=== PATIENT | female | born 1935 | race Caucasian/White ===

== ENCOUNTER 2018-06-10 16:44 | Inpatient (IN) ==
[2018-06-10] MEDS ORDERED: Aspirin 81 MG TAB.CHEW PO ONE (17:21)
[2018-06-10 18:03] LABS: Basophils % 0.1 %; Hematocrit 42.8 % (35.3-44.9); Hemoglobin 14.5 g/dL (11.5-15.4); Immature Granulocytes % 0.6 % (0-4); Lymphocytes # 11.7 K/mcL (0.6-4.6); Lymphocytes % 50.1 %; Mean Corpuscular HGB Conc 33.9 g/dL (31.6-35.5); Mean Corpuscular Volume 88.4 fL (83.0-100.0); Mean Platelet Volume 10.3 fL (9.4-12.4); Monocytes # 0.7 K/mcL (0.0-1.3); Monocytes % 2.9 %; Platelet Count 278 K/mcL (140-400); Red Blood Count 4.84 M/mcL (3.82-4.97); Red Cell Distribution Width 13.1 % (11.5-14.5); Segmented Neutrophils % 46.3 %
[2018-06-10 18:07] LABS: Neutrophils # 10.8 K/mcL (1.6-8.9)
[2018-06-10 18:09] LABS: INR 0.9
--- NOTE | 2018-06-10 18:12 | Emergency Department Note ---
Addendum entered and electronically signed by Ramírez Lewis 06/10/18 21:29: CTA of the chest revealed no evidence of pulmonary embolism. Original Note: Disposition Clinical Impression: Elevated troponin, Elevated brain natriuretic peptide (BNP) level Chest pain Qualifiers: Chest pain type: unspecified Qualified Code(s): R07.9 - Chest pain, unspecified Elevated WBC count Qualifiers: Leukocytosis type: other Qualified Code(s): D72.828 - Other elevated white blood cell count Disposition: Admitted As Inpatient Condition: Fair Time of Disposition: 21:10 General Adult HPI - General Chief complaint: ED Arrhythmia/Palpitations Stated complaint: High HR Time Seen by Provider: 06/10/18 17:03 Source: patient, family Mode of arrival: ambulatory Limitations: no limitations Nursing Notes Reviewed: Yes Vital Signs Reviewed: Yes - History of Present Illness HPI Narrative: Patient is an 82-year-old female presenting with elevated heart rate and chest pain. Patient has past medical history significant for hypertension, breast cancer, CLL, HLD. Patient states prior to arrival she was in her oncologists office and was found to have elevated heart rate in the 130s. Patient states she does not have history of elevated heart rate. She also states that last night she had an episode of chest pressure located just under the right breast which she describes to be a dull ache and pressure sensation lasting for a few seconds. She was nonexertional and the pain resolved on its own. Denies shortness of breath or diaphoresis. She denies any recent fever or chills. She states that she does have slight cough that has been ongoing for the past few weeks, denies any sputum production. Patient denies history of myocardial infarction in the past, she denies cardiac history. She denies history of DVT or PE. She denies calf tenderness or calf swelling. She does take her medications at home as requested. She does state that she has been under increased stress given her calcium was elevated at 13 and she was stated that she needed to come in for further evaluation. She currently denies chest pain or discomfort. Patient has recently not been moving around as much, she does have a boot to her left ankle, states that she has not been walking around quite as much and has been sitting in bed more often. Pain Scale: 0 - Related Data Home Medications Medication Instructions Recorded Confirmed LORazepam [Ativan] 0.5 mg PO QAM 10/17/15 06/10/18 Lisinopril [Zestril] 40 mg PO DAILY 10/17/15 06/10/18 Torsemide 5 mg PO DAILY 09/03/17 06/10/18 Cholecalciferol (D-3) [Vitamin D] 1,000 unit PO DAILY 12/03/17 06/10/18 predniSONE [PredniSONE] 10 mg PO TAPER PRN 06/10/18 06/10/18 Previous Rx's Medication Instructions Recorded Aspirin 81 mg PO DAILY 30 Days #30 tab.chew 06/12/18 Atorvastatin [Lipitor] 10 mg PO HS 30 Days #30 tablet 06/12/18 predniSONE [PredniSONE] 10 mg PO DAILY tablet 06/12/18 predniSONE [PredniSONE] 20 mg PO DAILY tablet 06/12/18 predniSONE [PredniSONE] 30 mg PO DAILY tablet 06/12/18 Allergies Allergy/AdvReac Type Severity Reaction Status Date / Time No Known Allergies Allergy Verified 06/10/18 20:42 All systems ED: reviewed and negative except as stated. Review of Systems: As Per HPI Constitutional: Denies: fever, chills ENT ED: Denies: congestion Cardiovascular: Reports: chest pain, palpitations. Denies: dyspnea on exertion , orthopnea, syncope, paroxysmal nocturnal dyspnea Respiratory: Reports: cough. Denies: dyspnea, wheezes, hemoptysis, sputum production Gastrointestinal: Denies: abdominal pain, nausea, vomiting Genitourinary: Denies: urgency, dysuria Musculoskeletal: Denies: back pain Integumentary: Denies: rash Neurological: Denies: headache Endocrine: Denies: fatigue Past Medical History - Past Medical History Medical history: Reports: cancer, hypertension Psychiatric history: Reports: anxiety - Social History Smoking Status: Never smoker Smokeless Tobacco Status: No Alcohol use: Reports: none Drug use: Reports: none Physical Exam - General Limitations: no limitations General appearance: alert, in no apparent distress - Head Head exam: atraumatic, normocephalic - Eye Eye exam: Present: normal appearance - ENT ENT exam: normal exam, mucous membranes moist - Neck Neck exam: Present: normal inspection - Chest Chest inspection: Present: normal inspection, symmetric chest wall rise. Absent : tenderness - Respiratory Respiratory exam: Present: normal lung sounds bilaterally, other (crackles to the right base). Absent: respiratory distress, wheezes - Cardiovascular Cardiovascular exam: Present: normal rhythm, tachycardia (rate of 101 in the room) - Abdominal Exam Abdominal exam: Present: soft, Non-Tender. Absent: distention, guarding, rebound - Extremities Exam Extremities exam: Present: normal inspection, normal capillary refill. Absent: tenderness, pedal edema, joint swelling, calf tenderness - Expanded Lower Extremity Exam Neurovascular/Tendon exam: Present: normal capillary refill. Absent: pulse deficit, motor deficit, sensory deficit - Neurological Exam Neurological exam: Present: alert, oriented X3 - Psychiatric Psychiatric exam: Present: normal affect, normal mood - Skin Skin exam: Present: warm, dry, intact Course Course Narrative: Will workup patient for ACS rule out, also concern for DVT/PE given remote history of immobilization, history of cancer and tachycardia. Vital Signs Temperature 97.9 F 06/10/18 17:02 Pulse Rate 115 06/10/18 17:02 Respiratory Rate 16 06/10/18 17:02 Blood Pressure 160/84 06/10/18 17:02 O2 Sat by Pulse Oximetry 95 06/10/18 17:02 Temperature 97.8 F 06/12/18 11:40 Pulse Rate 51 06/12/18 11:40 Respiratory Rate 19 06/12/18 11:40 Blood Pressure 138/79 06/12/18 11:40 O2 Sat by Pulse Oximetry 95 06/12/18 11:40 Oxygen Delivery Oxygen Delivery Room Air Medical Decision Making - [facility] Narrative Medical decision making narrative: Patient is an 82-year-old female presenting with palpitations and chest pain. Patient has past medical history significant for breast cancer, CLL, hypertension. Patient was seen and evaluated by her oncologist, who stated that she was tachycardic in the 130s. While scale score puts patient at high risk significant for immobilization as she is currently wearing a boot to the left leg, heart rate is greater than 100, Wells criteria places patient at moderate risk, diagnosis included most times and symptoms without evidence of DVT. The patient was examined initially on presentation, heart rate in the 1 teens, lot bedside heart rate is 102, pulse ox while on 2 L nasal cannula is at 96%. Patient does not usually wear oxygen at home. No history of prior DVT or PE, patient does not take aspirin or any anticoagulation at home. Immediate concern for ACS or PE. Laboratory evaluation revealed chronicleukocytosis at 23.2. BNP is elevated at 313, troponin was elevated at 0.11, chest x-ray showed opacification in the right lower lobe. Patient declines any fever, chills, has had slight cough recently. With concern for PE, CTA of the chest was ordered. At this point in time, we will call hospitalist with concern for ACS rule out, CTA currently pending. Spoke with hospitalist, patient symptoms and presentation agrees to accept the patient at this point in time, 2100. Does recommend going had an starting low-dose ACS heparin. He states that he will titrate this dose if needed. - Medical Records Medical records reviewed: Yes I reviewed the patient's medical records. - Lab Data Lab results reviewed: Yes I reviewed the patient's lab results. Result diagrams: 06/12/18 03:32 06/12/18 03:32 Lab Results 06/10/18 06/10/18 06/10/18 Range/Units 17:44 17:44 17:44 WBC (4.3-11.1) K/mcL RBC (3.82-4.97) M/mcL Hgb (11.5-15.4) g/dL Hct (35.3-44.9) % MCV (83.0-100.0) fL MCH (28.0-33.3) pg MCHC (31.6-35.5) g/dL RDW (11.5-14.5) % Plt Count (140-400) K/mcL MPV (9.4-12.4) fL Immature Gran % (0-4) % Seg Neutrophils % % Lymphocytes % % Monocytes % % Eosinophils % % Basophils % % Neutrophils # (1.6-8.9) K/mcL Lymphocytes # (0.6-4.6) K/mcL Monocytes # (0.0-1.3) K/mcL Eosinophils # (0.0-0.6) K/mcL Basophils # (0.0-0.2) K/mcL Nucleated RBCs/100 WBC (0) /100 WBC Smudge Cells (Not Present) Platelet Estimate (Normal) PT 10.0 (9.4-12.1) Seconds INR 0.9 APTT 26.0 (26.0-36.0) Seconds Heparin Anti-Xa, Unfract (0.30-0.70) IU/mL Sodium (136-145) mEq/L Potassium (3.5-5.1) mEq/L Chloride (98-107) mEq/L Carbon Dioxide (23-29) mEq/L BUN (8-23) mg/dL Creatinine (0.60-1.20) mg/dL Est GFR ( Amer) (> 60) Est GFR (Non-Af Amer) (> 60) BUN/Creatinine Ratio (6-26) Glucose (70-105) mg/dL Calculated Osmolality (280-300) Calcium (8.6-10.3) mg/dL Troponin I (< 0.04) ng/mL B-Natriuretic Peptide 313 H (Less than 100) pg/mL Lipase 4 L (11-82) Units/L Urine Color (Yellow) Urine Clarity (Clear) Urine pH (5.0-8.0) pH Units Ur Specific [place] (1.010-1.025) Urine Protein (Neg-Trace) mg/dL Urine Glucose (UA) (Normal) mg/dL Urine Ketones (Negative) mg/dL Urine Blood (Negative) Urine Nitrite (Negative) Urine Bilirubin (Negative) Urine Urobilinogen (Normal) mg/dL Ur Leukocyte Esterase (Negative) Urine Microscopic RBC (0-3) per hpf Urine Microscopic WBC (0-3) per hpf Ur Squamous Epith Cells (None-Few) per lpf Urine Bacteria (None-Few) per hpf Hyaline Casts (None-Few) per lpf Ur Culture Indicated? (NO) 06/10/18 06/10/18 06/10/18 Range/Units 17:44 17:44 18:14 WBC 23.4 H (4.3-11.1) K/mcL RBC 4.84 (3.82-4.97) M/mcL Hgb 14.5 (11.5-15.4) g/dL Hct 42.8 (35.3-44.9) % MCV 88.4 (83.0-100.0) fL MCH 30.0 (28.0-33.3) pg MCHC 33.9 (31.6-35.5) g/dL RDW 13.1 (11.5-14.5) % Plt Count 278 (140-400) K/mcL MPV 10.3 (9.4-12.4) fL Immature Gran % 0.6 (0-4) % Seg Neutrophils % 46.3 % Lymphocytes % 50.1 % Monocytes % 2.9 % Eosinophils % 0.0 % Basophils % 0.1 % Neutrophils # 10.8 H (1.6-8.9) K/mcL Lymphocytes # 11.7 H (0.6-4.6) K/mcL Monocytes # 0.7 (0.0-1.3) K/mcL Eosinophils # 0.0 (0.0-0.6) K/mcL Basophils # 0.0 (0.0-0.2) K/mcL Nucleated RBCs/100 WBC (0) /100 WBC Smudge Cells (Not Present) Platelet Estimate Normal (Normal) PT (9.4-12.1) Seconds INR APTT (26.0-36.0) Seconds Heparin Anti-Xa, Unfract (0.30-0.70) IU/mL Sodium 138 (136-145) mEq/L Potassium 3.6 (3.5-5.1) mEq/L Chloride 99 (98-107) mEq/L Carbon Dioxide 30 H (23-29) mEq/L BUN 18 (8-23) mg/dL Creatinine 0.88 (0.60-1.20) mg/dL Est GFR ( Amer) > 60 (> 60) Est GFR (Non-Af Amer) > 60 (> 60) BUN/Creatinine Ratio 20 (6-26) Glucose 186 H (70-105) mg/dL Calculated Osmolality 293 (280-300) Calcium 12.3 H (8.6-10.3) mg/dL Troponin I 0.11 H* (< 0.04) ng/mL B-Natriuretic Peptide (Less than 100) pg/mL Lipase (11-82) Units/L Urine Color Yellow (Yellow) Urine Clarity Clear (Clear) Urine pH 7.0 (5.0-8.0) pH Units Ur Specific [place] 1.010 (1.010-1.025) Urine Protein Negative (Neg-Trace) mg/dL Urine Glucose (UA) Normal (Normal) mg/dL Urine Ketones Negative (Negative) mg/dL Urine Blood Negative (Negative) Urine Nitrite Negative (Negative) Urine Bilirubin Negative (Negative) Urine Urobilinogen Normal (Normal) mg/dL Ur Leukocyte Esterase Trace H (Negative) Urine Microscopic RBC 0-3 (0-3) per hpf Urine Microscopic WBC 3-5 H (0-3) per hpf Ur Squamous Epith Cells Many H (None-Few) per lpf Urine Bacteria None Seen (None-Few) per hpf Hyaline Casts None Seen (None-Few) per lpf Ur Culture Indicated? NO. A (NO) 06/10/18 06/10/18 06/11/18 Range/Units 21:36 21:36 00:21 WBC 23.8 H (4.3-11.1) K/mcL RBC 4.59 (3.82-4.97) M/mcL Hgb 13.5 (11.5-15.4) g/dL Hct 39.9 (35.3-44.9) % MCV 86.9 (83.0-100.0) fL MCH 29.4 (28.0-33.3) pg MCHC 33.8 (31.6-35.5) g/dL RDW 13.2 (11.5-14.5) % Plt Count 273 (140-400) K/mcL MPV 10.3 (9.4-12.4) fL Immature Gran % (0-4) % Seg Neutrophils % % Lymphocytes % % Monocytes % % Eosinophils % % Basophils % % Neutrophils # (1.6-8.9) K/mcL Lymphocytes # (0.6-4.6) K/mcL Monocytes # (0.0-1.3) K/mcL Eosinophils # (0.0-0.6) K/mcL Basophils # (0.0-0.2) K/mcL Nucleated RBCs/100 WBC (0) /100 WBC Smudge Cells (Not Present) Platelet Estimate (Normal) PT 10.5 (9.4-12.1) Seconds INR 0.9 APTT (26.0-36.0) Seconds Heparin Anti-Xa, Unfract 0.06 L (0.30-0.70) IU/mL Sodium (136-145) mEq/L Potassium (3.5-5.1) mEq/L Chloride (98-107) mEq/L Carbon Dioxide (23-29) mEq/L BUN (8-23) mg/dL Creatinine (0.60-1.20) mg/dL Est GFR ( Amer) (> 60) Est GFR (Non-Af Amer) (> 60) BUN/Creatinine Ratio (6-26) Glucose (70-105) mg/dL Calculated Osmolality (280-300) Calcium (8.6-10.3) mg/dL Troponin I 0.23 H* (< 0.04) ng/mL B-Natriuretic Peptide (Less than 100) pg/mL Lipase (11-82) Units/L Urine Color (Yellow) Urine Clarity (Clear) Urine pH (5.0-8.0) pH Units Ur Specific [place] (1.010-1.025) Urine Protein (Neg-Trace) mg/dL Urine Glucose (UA) (Normal) mg/dL Urine Ketones (Negative) mg/dL Urine Blood (Negative) Urine Nitrite (Negative) Urine Bilirubin (Negative) Urine Urobilinogen (Normal) mg/dL Ur Leukocyte Esterase (Negative) Urine Microscopic RBC (0-3) per hpf Urine Microscopic WBC (0-3) per hpf Ur Squamous Epith Cells (None-Few) per lpf Urine Bacteria (None-Few) per hpf Hyaline Casts (None-Few) per lpf Ur Culture Indicated? (NO) 06/11/18 06/11/18 06/11/18 Range/Units 00:21 00:21 05:36 WBC 27.3 H (4.3-11.1) K/mcL RBC 4.57 (3.82-4.97) M/mcL Hgb 13.4 (11.5-15.4) g/dL Hct 39.9 (35.3-44.9) % MCV 87.3 (83.0-100.0) fL MCH 29.3 (28.0-33.3) pg MCHC 33.6 (31.6-35.5) g/dL RDW 13.2 (11.5-14.5) % Plt Count 276 (140-400) K/mcL MPV 10.4 (9.4-12.4) fL Immature Gran % (0-4) % Seg Neutrophils % 58.0 % Lymphocytes % 36.0 % Monocytes % 6.0 % Eosinophils % % Basophils % % Neutrophils # 15.8 H (1.6-8.9) K/mcL Lymphocytes # 9.8 H (0.6-4.6) K/mcL Monocytes # 1.6 H (0.0-1.3) K/mcL Eosinophils # (0.0-0.6) K/mcL Basophils # (0.0-0.2) K/mcL Nucleated RBCs/100 WBC 0.1 H (0) /100 WBC Smudge Cells Present A (Not Present) Platelet Estimate Normal (Normal) PT (9.4-12.1) Seconds INR APTT (26.0-36.0) Seconds Heparin Anti-Xa, Unfract (0.30-0.70) IU/mL Sodium 137 (136-145) mEq/L Potassium 3.2 L (3.5-5.1) mEq/L Chloride 99 (98-107) mEq/L Carbon Dioxide 30 H (23-29) mEq/L BUN 17 (8-23) mg/dL Creatinine 0.80 (0.60-1.20) mg/dL Est GFR ( Amer) > 60 (> 60) Est GFR (Non-Af Amer) > 60 (> 60) BUN/Creatinine Ratio 21 (6-26) Glucose 192 H (70-105) mg/dL Calculated Osmolality 291 (280-300) Calcium 11.8 H (8.6-10.3) mg/dL Troponin I 0.24 H* (< 0.04) ng/mL B-Natriuretic Peptide (Less than 100) pg/mL Lipase (11-82) Units/L Urine Color (Yellow) Urine Clarity (Clear) Urine pH (5.0-8.0) pH Units Ur Specific [place] (1.010-1.025) Urine Protein (Neg-Trace) mg/dL Urine Glucose (UA) (Normal) mg/dL Urine Ketones (Negative) mg/dL Urine Blood (Negative) Urine Nitrite (Negative) Urine Bilirubin (Negative) Urine Urobilinogen (Normal) mg/dL Ur Leukocyte Esterase (Negative) Urine Microscopic RBC (0-3) per hpf Urine Microscopic WBC (0-3) per hpf Ur Squamous Epith Cells (None-Few) per lpf Urine Bacteria (None-Few) per hpf Hyaline Casts (None-Few) per lpf Ur Culture Indicated? (NO) 06/11/18 06/11/18 Range/Units 05:36 12:04 WBC (4.3-11.1) K/mcL RBC (3.82-4.97) M/mcL Hgb (11.5-15.4) g/dL Hct (35.3-44.9) % MCV (83.0-100.0) fL MCH (28.0-33.3) pg MCHC (31.6-35.5) g/dL RDW (11.5-14.5) % Plt Count (140-400) K/mcL MPV (9.4-12.4) fL Immature Gran % (0-4) % Seg Neutrophils % % Lymphocytes % % Monocytes % % Eosinophils % % Basophils % % Neutrophils # (1.6-8.9) K/mcL Lymphocytes # (0.6-4.6) K/mcL Monocytes # (0.0-1.3) K/mcL Eosinophils # (0.0-0.6) K/mcL Basophils # (0.0-0.2) K/mcL Nucleated RBCs/100 WBC (0) /100 WBC Smudge Cells (Not Present) Platelet Estimate (Normal) PT (9.4-12.1) Seconds INR APTT (26.0-36.0) Seconds Heparin Anti-Xa, Unfract 0.67 0.52 (0.30-0.70) IU/mL Sodium (136-145) mEq/L Potassium (3.5-5.1) mEq/L Chloride (98-107) mEq/L Carbon Dioxide (23-29) mEq/L BUN (8-23) mg/dL Creatinine (0.60-1.20) mg/dL Est GFR ( Amer) (> 60) Est GFR (Non-Af Amer) (> 60) BUN/Creatinine Ratio (6-26) Glucose (70-105) mg/dL Calculated Osmolality (280-300) Calcium (8.6-10.3) mg/dL Troponin I (< 0.04) ng/mL B-Natriuretic Peptide (Less than 100) pg/mL Lipase (11-82) Units/L Urine Color (Yellow) Urine Clarity (Clear) Urine pH (5.0-8.0) pH Units Ur Specific [place] (1.010-1.025) Urine Protein (Neg-Trace) mg/dL Urine Glucose (UA) (Normal) mg/dL Urine Ketones (Negative) mg/dL Urine Blood (Negative) Urine Nitrite (Negative) Urine Bilirubin (Negative) Urine Urobilinogen (Normal) mg/dL Ur Leukocyte Esterase (Negative) Urine Microscopic RBC (0-3) per hpf Urine Microscopic WBC (0-3) per hpf Ur Squamous Epith Cells (None-Few) per lpf Urine Bacteria (None-Few) per hpf Hyaline Casts (None-Few) per lpf Ur Culture Indicated? (NO) - Radiology Data Radiology results reviewed: Yes I reviewed the patient's radiology results. Chest X-Ray 06/10/18 17:21 IMPRESSION: Possible right lower lobe pneumonia D/ / Robbie Fish MD / Robbie Fish MD Interpreting Provider: Robbie Fish MD - EKG Data EKG #1 EKG attestation: Yes I reviewed and interpreted this EKG. EKG results narrative: EKG performed at 1719, with ventricular rate of 102, regular rhythm, normal axis , left bundle branch block with QRS of 154, QT 383, QTC of 499, no elevation or depression in the ST segments, no change in the T-wave. LVH noted. In review of old EKG on appears unchanged. S.B.A.R. - S.B.A.R. Situation: Demographics, MOA Background: Presenting Complaint, Relevant PMH, Meds, & Allergies Assessment: Vital Signs, Course and respsone to treatment, Exam Concerns, Patient/Family Expectation, Pertinant Lab Results, Outstanding Labs Recommendation: Barrier(s) to disposition, Recommendation based on pending studies, treatments, or consults S.B.A.R. Report Given to: Hospitalist, Dr. Mederos S.B.A.RRuben Repor Time: 21:09 (accepted) Attestation Statement - Attestation Attestation: I examined this patient and my medical decision-making was reviewed with the Resident Physician, Dr. Lewis. I agree with the documented findings, disposition and treatment plan as described except to the extent set forth below. Pt is an 82 yo wf sent from Oncologist's office for tachycardia. Pt c/o R sided chest pressure since last night, without exertion, none currently. Pt with hx CLL, and dec activity with LE immobilized. I agree with pt's PE findings as documented. tachycardic, normal BP. EKG shows sinus tach, LVH, LBBB; no change from prior EKG CXR with atelectasis vs RLL infiltrate. No clinical signs of pulm infection. Concern for ACS vs PE. Obtained CTA chest, which is wnl. Will admit for CP.
[2018-06-10 18:24] LABS: Bilirubin,Urine Negative (Negative); Blood,Urine Negative (Negative); Clarity,Urine Clear (Clear); Color,Urine Yellow (Yellow); Glucose,Urine (UA) Normal (Normal); Ketones,Urine Negative (Negative); Leukocyte Esterase,Urine Trace (Negative); Nitrite,Urine Negative (Negative); Protein,Urine Negative (Neg-Trace); Urobilinogen,Urine Normal (Normal)
[2018-06-10 18:25] LABS: Bacteria,Urine None Seen per hpf (None-Few); Hyaline Casts,Urine None Seen per lpf (None-Few); RBC,Urine 0-3 per hpf (0-3); Squamous Epithelial Cell,Urine Many per lpf (None-Few)
[2018-06-10 18:26] LABS: Troponin I 0.11 ng/mL (< 0.04)
[2018-06-10 18:28] LABS: BUN/Creatinine Ratio 20 (6-26); Blood Urea Nitrogen 18 mg/dL (8-23); Calcium 12.3 mg/dL (8.6-10.3); Carbon Dioxide 30 mEq/L (23-29); Chloride 99 mEq/L (98-107); Glucose 186 mg/dL (70-105); Osmolality,Calculated 293 (280-300); Potassium 3.6 mEq/L (3.5-5.1); Sodium 138 mEq/L (136-145); eGFR For Non-African Americans > 60 (> 60)
[2018-06-10] MEDS ORDERED: Isovue-370 500 ML INFUS..BTL IV ONE (18:29)
[2018-06-10 18:38] LABS: Platelet Estimate Normal (Normal)
[2018-06-10] MEDS ORDERED: *HR* Heparin 5,000 UNIT/ML VIAL IVP ONE (21:13)
[2018-06-10] MEDS ORDERED: *HR* Heparin 5,000 UNIT/ML VIAL IVP PRN ×2 (21:13)
[2018-06-10 22:03] LABS: Hematocrit 39.9 % (35.3-44.9); Hemoglobin 13.5 g/dL (11.5-15.4); Mean Corpuscular HGB Conc 33.8 g/dL (31.6-35.5); Mean Corpuscular Hemoglobin 29.4 pg (28.0-33.3); Mean Corpuscular Volume 86.9 fL (83.0-100.0); Mean Platelet Volume 10.3 fL (9.4-12.4); Platelet Count 273 K/mcL (140-400); Red Blood Count 4.59 M/mcL (3.82-4.97); Red Cell Distribution Width 13.2 % (11.5-14.5)
[2018-06-10 22:09] LABS: Heparin anti-factor XA UFH 0.06 IU/mL (0.30-0.70); INR 0.9; Prothrombin Time 10.5 Seconds (9.4-12.1)
[2018-06-10] MEDS ORDERED: Naloxone 0.4 MG/ML INJ IVP PRN (22:41)
--- NOTE | 2018-06-10 22:52 | Internal Med History&Physical ---
<Román Miller - Last Filed: 06/11/18 00:08> Date of Encounter: 06/11/18 Time of Encounter: 23:06 Internal Medicine - H&P: HPI Chief complaint: tacycardia Admitted From: Home Plans for Post Hospital Care: Home History of present illness: Ms. Arana is a 82 year old female hx of CLL presented with chief complaint of tachycardia. Patient was at the oncologists office and was found to have a heart rate in the 120s to 130s. She also had episode of chest pain after eating pizza in the morning. Her pain was located in the right breast without any radiation described as a dull ache lasted only a few seconds. She denied the pain becoming worse with exertion, inspiration or improved with rest. She denied shortness of breath, diaphoresis, palpitations, nausea, vomiting, syncope , lightheadedness. She denies fevers, chills, sick contacts. She reports having pain in her left lower extremity, which is in a cast secondary to acute traumatic lateral malleolus fracture and developing gout which she on prednisone. Patient was sent to [facility] emergency room for further evaluation. Patient receives Zometa at the cancer center for hypercalcemia secondary to CLL. She had an infusion before coming to the hospital. Past Med Surg Social Fam HX - Past Medical History Medical history: cancer, hypertension Additional medical history: skin cancer. breast cancer. CLL Psychiatric history: anxiety - Past Surgical History Additional surgical history: skin cancer removal from nose. left breast lumpectomy - Social History Smoking Status: Never smoker Smokeless Tobacco Status: No Alcohol use: none Drug use: none Internal Medicine - H&P: Meds LORazepam [Ativan] 0.5 mg PO QAM 10/17/15 [History] Lisinopril [Zestril] 40 mg PO DAILY 10/17/15 [History] Torsemide 5 mg PO DAILY 09/03/17 [History] Cholecalciferol (D-3) [Vitamin D] 1,000 unit PO DAILY 12/03/17 [History] predniSONE [PredniSONE] 10 mg PO TAPER PRN 06/10/18 [History] 3 Allergy/AdvReac Type Severity Reaction Status Date / Time No Known Allergies Allergy Verified 06/10/18 20:42 All Systems PM: A 10-system review of systems was performed and is negative for pertinent findings except as documented above in the HPI. Review of systems: Constitutional: Denies fever, chills HEENT: Denies headache, trauma, blurry vision, eye discharge, ear pain, ear discharge neck pain, sore throat, rhinorrhea Heart: Reports chest pain denies palpitations, LE edema Lungs: Denies shortness of breath cough Abdomen: Denies abdominal pain nausea vomiting diarrhea MSK: Denies back pain, falls, Kidney: Denies dysuria, hematuria Skin: Denies rash, ulcers Neuro: Denies numbness and tingling Psych: denies axniety, depression - Constitutional Vitals: Temp Pulse Resp BP Pulse Ox 97.9 F 86 16 157/98 96 06/10/18 17:30 06/10/18 21:21 06/10/18 19:15 06/10/18 21:21 06/10/18 21:21 Exam: General: pleasant, without distress HEENT: Head atraumatic, normocephalic, EOMI, PERRL, absent ear discharge or trauma, Moist Mucous Membranes, uvula midline Neck: nontender to palpation, absent lymphadenopathy, Cardiovascualr: Regular rate and rhythm with no murmur, absent gallops or rubs, absent pedal edema, radial pulses 2 out of 4 Lungs: Clear to auscultation bilaterally, not in respiratory distress Abdomen: Soft nontender, nondistended positive bowel sounds, absent hepatomegaly Skin: warm and dry, absent rash, absent open wounds and nodules MSK: absent clubbing, cyanosis, joints without swelling. LLE in cast. Neuro: Cranial nerves II through XII intact, UE and LE sensation equal bilaterally, UE and LEstrength 5/5, alert oriented 3, Psych: good insight and judgment, anxious, depressed Internal Med - H&P Results - Labs CBC & Chem 7: 06/10/18 21:36 06/10/18 17:44 - Assessment and plan (1) NSTEMI (non-ST elevated myocardial infarction) Current Visit: Yes Status: Acute Assessment and plan: 82 F presented with chief complaint of tachycardia Sent by oncology office for concern of DVT, PE CTA negative for PE Troponin elevated 0.11 she had pain under her right breast lasted a few seconds 2014 echocardiogram showed LVEF of 60-65% with atypical septal motion and mild left ventricular diastolic dysfunction. There was no significant valvular dysfunction. EKG sinus tachycardia with rate [address] elav[address], QRS widening of 155, LVH. She does not have hx of CAD Plan: trend troponin, repeat EKG,heparin gtt, aspirin, atorvastatin, metoprolol. Order echocardiogram. consult cardiology (2) Hypercalcemia Current Visit: Yes Status: Chronic Assessment and plan: Patient has a history of hypercalcemia secondary to hyperparathyroidism She receives Zometa infusions at the oncologists office Patient had a infusion today She is scheduled with oncology in the next 10 days. (3) CLL (chronic lymphocytic leukemia) Current Visit: Yes Status: Chronic (4) Acute gout Current Visit: Yes Status: Acute Assessment and plan: She was started developing acute In the left great toe starting last Friday. PCP started patient on prednisone We will continue her prednisone taper. Qualifiers: Gout site: foot Gout etiology: other secondary cause Laterality: left Qualified Code(s): M10.472 - Other secondary gout, left ankle and foot - Time Spent With Patient Total time spent is greater than 50% in coordination of care (as documented) at patient's floor/unit and/or counseling patient: <Tim Mederosfritz - Last Filed: 06/11/18 00:15> Date of Encounter: 06/11/18 Internal Medicine - H&P: HPI History of present illness: Ms. Arana is a 82 year old female All Systems PM: A 10-system review of systems was performed and is negative for pertinent findings except as documented above in the HPI. - Constitutional Vitals: Temp Pulse Resp BP Pulse Ox 97.9 F 85 16 143/92 94 06/10/18 17:30 06/10/18 23:07 06/10/18 19:15 06/10/18 23:07 06/10/18 23:07 Internal Med - H&P Results - Labs CBC & Chem 7: 06/10/18 21:36 06/10/18 17:44 - Assessment and plan (1) Hypercalcemia Current Visit: Yes Status: Chronic (2) CLL (chronic lymphocytic leukemia) Current Visit: Yes Status: Chronic (3) NSTEMI (non-ST elevated myocardial infarction) Current Visit: Yes Status: Acute (4) Acute gout Current Visit: Yes Status: Acute Qualifiers: Gout site: foot Gout etiology: other secondary cause Laterality: left Qualified Code(s): M10.472 - Other secondary gout, left ankle and foot - Time Spent With Patient Total time spent is greater than 50% in coordination of care (as documented) at patient's floor/unit and/or counseling patient: - Attending Attestation 82 year old woman with CLL being followed by oncology who came in from clinic where she was receiving bisphosphonate infusion for hypercalcemia referred to the ER for tachycardia. She also complained of some chest discomfort earlier today which she thought was related to indigestion. On arrival she was clinically and hemodynamically stabled. Physical exam remarkable for a pleasant elderly woman in no acute distress with pale skin but moist mucous membranes, no positive findings on cardiac and pulmonary auscultation. No peripheral edema. Left leg in a cast-boot. Labs remarkable for troponin 0.11. Mild RLL opacification on CXR however chest CT was clear of any parenchymal consolidations and PE. Started on heparin gtt for possible NSTEMI pending further evaluation. EKG concerning for Q-waves ST elevations in the anterior leads on my evaluation. Will obtain repeat EKG, echo in the morning, trend troponins, monitor vitals, keep on telemetry and obtain cardiology consultation for assessment.
[2018-06-10] MEDS: Heparin 25,000 UNIT/500 ML D5W 25,000 UNIT/500 ML BAG IVC SCH (23:08)
[2018-06-11 00:41] LABS: Mean Corpuscular HGB Conc 33.6 g/dL (31.6-35.5); Mean Platelet Volume 10.4 fL (9.4-12.4)
[2018-06-11 00:42] LABS: Hematocrit 39.9 % (35.3-44.9); Hemoglobin 13.4 g/dL (11.5-15.4); Mean Corpuscular Hemoglobin 29.3 pg (28.0-33.3); Mean Corpuscular Volume 87.3 fL (83.0-100.0); Nucleated Red Blood Cells 0.1 /100 WBC (0); Platelet Count 276 K/mcL (140-400); Red Blood Count 4.57 M/mcL (3.82-4.97); Red Cell Distribution Width 13.2 % (11.5-14.5)
[2018-06-11 00:53] LABS: BUN/Creatinine Ratio 21 (6-26); Blood Urea Nitrogen 17 mg/dL (8-23); Calcium 11.8 mg/dL (8.6-10.3); Carbon Dioxide 30 mEq/L (23-29); Chloride 99 mEq/L (98-107); Glucose 192 mg/dL (70-105); Osmolality,Calculated 291 (280-300); Potassium 3.2 mEq/L (3.5-5.1); Sodium 137 mEq/L (136-145); eGFR For Non-African Americans > 60 (> 60)
[2018-06-11 01:32] LABS: Lymphocytes # 9.8 K/mcL (0.6-4.6); Monocytes # 1.6 K/mcL (0.0-1.3); Neutrophils # 15.8 K/mcL (1.6-8.9)
[2018-06-11 01:33] LABS: Platelet Estimate Normal (Normal); Smudge Cells Present (Not Present)
[2018-06-11] MEDS ORDERED: Potassium Chloride Elixir 20 MEQ/15 ML UDC PO ONE (02:03)
[2018-06-11] MEDS ORDERED: Torsemide 20 MG TABLET PO SCH (09:00)
[2018-06-11] MEDS: Aspirin 81 MG TAB.CHEW PO SCH (09:01)
[2018-06-11] MEDS: predniSONE 10 MG TABLET PO SCH (09:02)
[2018-06-11] MEDS: Lisinopril 20 MG TABLET PO SCH (09:03)
--- NOTE | 2018-06-11 09:08 | Internal Med Progress Note ---
<Shar Cam S - Last Filed: 06/11/18 11:56> Hospitalist Progress Note - Encounter Date of Encounter: 06/11/18 Time of Encounter: 09:05 - Subjective Interval History: Ms Arana is an 82yo female who was admitted yesterday from her oncologist's office She has a PMH of CLL, HTN, gout and breast cancer 5yrs ago. She was found to be tacycardic at the doctor office with HR in 120-130's. She states that over the last two days she had been having some chest heaviness in the right chest without radiation, dull in quality and lasted for a short time. She denies any worsening with exertion, SOB. The pt didn't have any episodes of N/V, abd pain, or diaphorsis. -pt receivies Zometa at the cancer center for hypercalcemia 2/2 CLL and had an infusion before coming to the hospital. She denies any constipation, weakness, change in mood Currently the pt is resting comfortably. She has no active chest pain, palpiltations, SOB, N/V/D. - Exam Vitals: Temp Pulse Resp BP Pulse Ox 97.9 F 82 20 161/86 94 06/10/18 17:30 06/11/18 06:19 06/11/18 06:19 06/11/18 06:19 06/11/18 06:19 Exam: General: pleasant, without distress HEENT: Head atraumatic, normocephalic, EOMI, PERRL, absent ear discharge or trauma, Moist Mucous Membranes, uvula midline Neck: nontender to palpation, absent lymphadenopathy, Cardiovascualr: Regular rate and rhythm with no murmur, absent gallops or rubs, absent pedal edema, radial pulses 2 out of 4 Lungs: Clear to auscultation bilaterally, not in respiratory distress Abdomen: Soft nontender, nondistended positive bowel sounds, absent hepatomegaly Skin: warm and dry, absent rash, absent open wounds and nodules MSK: absent clubbing, cyanosis, joints without swelling. LLE in cast. Neuro: Cranial nerves II through XII intact, UE and LE sensation equal bilaterally, UE and LEstrength 5/5, alert oriented 3, Psych: good insight and judgment, anxious, depressed - Assessment and Plan (1) Hypercalcemia Current Visit: Yes Status: Chronic Assessment and Plan: Patient has a history of hypercalcemia secondary to hyperparathyroidism -She receives Zometa infusions at the oncologists office -Patient last infusion 06/10/18 before coming to the [facility], will go back in 10day Pt reports no symptoms of hypercalcemia -no constipation, neuropsychiatric s/s, fatigue, lethargy Calcium today 11.8 Plan: -continue to monitor calcium -outpatient hematology followup (2) CLL (chronic lymphocytic leukemia) Current Visit: Yes Status: Chronic Assessment and Plan: Pt sees outpatient heme onc for management of CLL -has hypercalcemia assoc with CLL, calcium 11.8 -see plan as above (3) NSTEMI (non-ST elevated myocardial infarction) Current Visit: Yes Status: Acute Assessment and Plan: 82 F presented with chief complaint of tachycardia -had right sided chest pain under breast which lasted for a short time and had no radiation -sent from oncology -CTA negative for PE -pt denies CAD hx, hx of LHC or any stents -type I vs type II, most likely demand ischemia in nature Troponin 0.11 --> 0.23 ---> 0.24 ---> last troponin at 10AM EKG sinus tachycardia with rate [address] elavation, QRS widening of 155, LVH. 2014 echocardiogram -LVEF of 60-65% with atypical septal motion and mild left ventricular diastolic dysfunction. -There was no significant valvular dysfunction. Plan: -trend troponin, -heparin gtt as per protocol -aspirin, atorvastatin, metoprolol -ECHO pending -cardiology consulted -NPO currently in case of need for intervention (4) Acute gout Current Visit: Yes Status: Acute Assessment and Plan: She was started developing acute In the left great toe starting last Friday. -PCP started patient on prednisone -We will continue her prednisone taper. (5) Hypertension Current Visit: No Status: Chronic Assessment and Plan: BP 161/86 -poorly controlled -on zestril and lopressor -add hydralazine 10mg IVP q6hr prn SBP >160 (6) Hypokalemia Current Visit: Yes Status: Acute Assessment and Plan: Potassium this AM 3.2 -replaced (7) DVT prophylaxis Current Visit: Yes Status: Acute Assessment and Plan: heparin drip as per protocol DVT Prophylaxis: heparin drip as per protocol - Time Spent with Patient Total time spent is greater than 50% in coordination of care (as documented) at patient's floor/unit and/or counseling patient: less than 15 minutes Plan of Care Discussed with: patient Internal Medicine: Result - Labs CBC & Chem 7: 06/11/18 00:21 06/11/18 00:21 Labs: Short CBC 06/11/18 Range/Units 00:21 WBC 27.3 H (4.3-11.1) K/mcL Hgb 13.4 (11.5-15.4) g/dL Hct 39.9 (35.3-44.9) % Plt Count 276 (140-400) K/mcL Neutrophils # 15.8 H (1.6-8.9) K/mcL BMP 06/11/18 00:21 Sodium 137 Potassium 3.2 L Chloride 99 Carbon Dioxide 30 H BUN 17 Creatinine 0.80 Glucose 192 H Calcium 11.8 H Cardiac Enzymes 06/11/18 06/11/18 Range/Units 00:21 05:36 Troponin I 0.23 H* 0.24 H* (< 0.04) ng/mL - ABG Interpretation ABG results: PT/INR, D-dimer PT 10.5 Seconds (9.4-12.1) 06/10/18 21:36 Consult Discharge Plan - Plan Referrals: Victor Hugo Figueroa Jr, MD [Primary Care Provider] - <Stuart Perez - Last Filed: 06/11/18 18:03> Hospitalist Progress Note - Encounter Date of Encounter: 06/11/18 - Exam Vitals: Temp Pulse Resp BP Pulse Ox 98 F 68 18 150/79 94 06/11/18 16:52 06/11/18 16:52 06/11/18 16:52 06/11/18 16:52 06/11/18 16:52 - Assessment and Plan (1) Hypercalcemia Current Visit: Yes Status: Chronic (2) CLL (chronic lymphocytic leukemia) Current Visit: Yes Status: Chronic (3) NSTEMI (non-ST elevated myocardial infarction) Current Visit: Yes Status: Acute (4) Acute gout Current Visit: Yes Status: Acute (5) Hypertension Current Visit: No Status: Chronic (6) Hypokalemia Current Visit: Yes Status: Acute (7) DVT prophylaxis Current Visit: Yes Status: Acute - Time Spent with Patient Total time spent is greater than 50% in coordination of care (as documented) at patient's floor/unit and/or counseling patient: Internal Medicine: Result - Labs CBC & Chem 7: 06/11/18 00:21 06/11/18 00:21 - ABG Interpretation ABG results: PT/INR, D-dimer PT 10.5 Seconds (9.4-12.1) 06/10/18 21:36 - Attending Attestation I examined this patient and my medical decision-making was reviewed with the Resident Physician. I agree with the documented findings, disposition and treatment plan as described except to the extent set forth below. <Stuart Perez - Last Filed: 06/11/18 18:03> (4) Acute gout Qualifiers: Gout site: foot Gout etiology: other secondary cause Laterality: left Qualified Code(s): M10.472 - Other secondary gout, left ankle and foot (5) Hypertension Qualifiers: Hypertension type: essential hypertension Qualified Code(s): I10 - Essential (primary) hypertension
--- NOTE | 2018-06-11 09:30 | Cardiology Consult Note ---
Date of Encounter: 06/11/18 Time of Encounter: 09:29 Assessment and Plan (1) Elevated troponin Current Visit: Yes Status: Acute minimal, peak 0.2, flat type II NSTEMI likely given tachy, hypertension pending echo for wma, ef (2) Tachycardia Current Visit: Yes Status: Acute sinus tachy, nl fluctuation etiology gout pain, R-shoulder L foot pain, pred, hyperCa (3) Acute gout Current Visit: Yes Status: Acute Qualifiers: Gout site: foot Gout etiology: other secondary cause Laterality: left Qualified Code(s): M10.472 - Other secondary gout, left ankle and foot (4) Hypertension Current Visit: No Status: Chronic due to hypercalcemia + pain on top of essential management per primary team Qualifiers: Hypertension type: essential hypertension Qualified Code(s): I10 - Essential (primary) hypertension (5) Hypercalcemia Current Visit: Yes Status: Chronic (6) CLL (chronic lymphocytic leukemia) Current Visit: Yes Status: Chronic (7) Chest discomfort Current Visit: Yes Status: Acute wks, rare, atypical chest pain (hypercalcemia, HTN) likely. pending echo, if nl. outpt stress test. Discussion w patient/family: The assessment and plan as outlined above was discussed with the patient and/or family members who expressed understanding and agreement. All questions were answered. Thank you for involving us in the care of your patient. Please call with any questions. History of Present Illness Consult date: 06/11/18 Requesting physician: Shar Cam Consult reason: elevated troponin Chief complaint: tachycardia History of present illness: Ms. Arana is a 82 year old female ho CLL, breast Ca, skin Ca, HTN Sent to hospital for tachycardia 120s during infusion of zometa for hypercalcemia. ECG sinus tachy, Tele SR 60S-120S overnight. Pt had no palpitation, cp, dizziness. Did mention wks of intermittent B/L lower chest dull discomfort at rest lasting minutes w/o radiation spontaneous resolution w/o dyspnea N/V. Otherwise able to walk flights of stairs or long distance before fall R-shoulder /L-foot injury. + L-foot gout flare, on pred BP 160s/80s-100s CT PE neg, WBC 24,Hb 13, K3.2, Ca 12, trop 0.1-0.2-0.2, BNP 313 Echo pending 05/2015 Impressions: LVEF 60-65%. There is atypical septal motion consistent with bundle branch block. Mild left ventricular diastolic dysfunction. Normal right ventricular structure and function. Mildly dilated left atrium. No significant valvular dysfunction. No evidence of pulmonary hypertension. Past Med Surg Social Fam HX - Past Medical History Medical history: cancer, hypertension Additional medical history: skin cancer. breast cancer. CLL Psychiatric history: anxiety - Past Surgical History Surgical History: hysterectomy Additional surgical history: skin cancer removal from nose. left breast lumpectomy - Social History Smoking Status: Never smoker Smokeless Tobacco Status: No Alcohol use: none Drug use: none Medications and Allergies LORazepam [Ativan] 0.5 mg PO QAM 10/17/15 [History] Lisinopril [Zestril] 40 mg PO DAILY 10/17/15 [History] Torsemide 5 mg PO DAILY 09/03/17 [History] Cholecalciferol (D-3) [Vitamin D] 1,000 unit PO DAILY 12/03/17 [History] predniSONE [PredniSONE] 10 mg PO TAPER PRN 06/10/18 [History] 3 Allergy/AdvReac Type Severity Reaction Status Date / Time No Known Allergies Allergy Verified 06/10/18 20:42 All Systems Review: The remainder of the systems were reviewed and are negative - Cardiovascular Cardiovascular: as per HPI - Respiratory Respiratory: no dyspnea - Gastrointestinal Gastrointestinal: no diarrhea - Musculoskeletal Musculoskeletal: other (L-foot gout flare. R-shoulder and L foot injury 5 wks ago from a fall) - Hematological/Lymphatic Hematologic/Lymphatic: no easy bleeding Physical Examination Vital Signs, Last 4 Hours Pulse Resp BP Pulse Ox 06/11/18 06:19 82 20 161/86 94 Other: General: NAD, AAO, cogent HEENT: anicteric Neck: no JVD, no bruits Chest: CTA B/L, no W/R/C Heart: RRR, S1/S2, no S3/S4, no M/G/R Abdominal: BS +, soft, ND, NT Peripheral Pulses: radial pulse 2+ B/L Skin/Extremities: LLE in boot, no RLE edema, R-shoulder limited motion due to injury Neurological: grossly non-focal. Results 06/11/18 00:21 06/11/18 00:21 Lab Results 06/11/18 06/11/18 06/11/18 00:21 00:21 00:21 WBC 27.3 H Hgb 13.4 Hct 39.9 Plt Count 276 Sodium 137 Potassium 3.2 L Chloride 99 Carbon Dioxide 30 H BUN 17 Creatinine 0.80 Glucose 192 H Calcium 11.8 H Troponin I 0.23 H* 06/11/18 05:36 WBC Hgb Hct Plt Count Sodium Potassium Chloride Carbon Dioxide BUN Creatinine Glucose Calcium Troponin I 0.24 H* - Imaging and Cardiology Echo: pending, report reviewed Holter: other (tele reviewed) - EKG Interpretation EKG results cardiology: personally reviewed, sinus rhythm Consult Discharge Plan - Plan Referrals: Victor Hugo Figueroa Jr, MD [Primary Care Provider] -
[2018-06-11] MEDS: Furosemide 20 MG TABLET PO SCH (10:53)
[2018-06-11] MEDS ORDERED: Perflutren Lipid Microsphere 1.3 ML in 0.9 % Sodium Chloride 8.7 ML IVP ONE (16:03)
[2018-06-12 04:05] LABS: Mean Corpuscular Hemoglobin 29.5 pg (28.0-33.3)
[2018-06-12 04:07] LABS: Hematocrit 39.4 % (35.3-44.9); Mean Corpuscular Volume 89.3 fL (83.0-100.0); Mean Platelet Volume 10.8 fL (9.4-12.4); Platelet Count 247 K/mcL (140-400); Red Blood Count 4.41 M/mcL (3.82-4.97); Red Cell Distribution Width 13.3 % (11.5-14.5)
[2018-06-12 04:26] LABS: Alanine Aminotransferase 18 Units/L (7-52); Albumin 3.3 g/dL (3.5-5.7); Albumin/Globulin Ratio 1.3 (1.1-2.2); Alkaline Phosphatase 112 Units/L (34-104); Aspartate Amino Transferase 20 Units/L (13-39); BUN/Creatinine Ratio 24 (6-26); Bilirubin,Total 0.4 mg/dL (0.3-1.0); Blood Urea Nitrogen 23 mg/dL (8-23); Calcium 10.6 mg/dL (8.6-10.3); Carbon Dioxide 29 mEq/L (23-29); Chloride 102 mEq/L (98-107); Globulin 2.6 g/dL (2.4-3.5); Glucose 173 mg/dL (70-105); Osmolality,Calculated 292 (280-300); Potassium 3.5 mEq/L (3.5-5.1); Sodium 137 mEq/L (136-145); Total Protein 5.9 g/dL (6.4-8.9); eGFR For Non-African Americans 55 (> 60)
[2018-06-12 05:19] LABS: Large Platelets Present (Not Present); Lymphocytes # 9.8 K/mcL (0.6-4.6); Monocytes # 0.8 K/mcL (0.0-1.3); Neutrophils # 14.5 K/mcL (1.6-8.9); Platelet Estimate Normal (Normal)
[2018-06-12 05:20] LABS: Reactive Lymphocytes Present (Not Present); Smudge Cells Present (Not Present)
[2018-06-12] MEDS: Aspirin 81 MG TAB.CHEW PO SCH (08:49)
[2018-06-12] MEDS: predniSONE 10 MG TABLET PO SCH (08:50)
[2018-06-12] MEDS: Lisinopril 20 MG TABLET PO SCH (08:50)
[2018-06-12] MEDS: Furosemide 20 MG TABLET PO SCH (08:51)
[2018-06-12] MEDS: Heparin 25,000 UNIT/500 ML D5W 25,000 UNIT/500 ML BAG IVC SCH (08:53)
[2018-06-12] MEDS ORDERED: *HR* LORazepam 0.5 MG TABLET PO SCH (09:00)
[2018-06-12] MEDS ORDERED: Cholecalciferol (D-3) 1,000 UNIT TABLET PO SCH (09:00)
--- NOTE | 2018-06-12 09:38 | Discharge Summary ---
<Shar aCm S - Last Filed: 06/12/18 11:39> - NOTES TO OUTPATIENT PROVIDER Notes to Outpatient Provider: Follow up with oncologist regarding hypercalcemia and CLL. 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 She was found to be tacycardic at the doctor office with HR in 120-130's. She states that over the last two days she had been having some chest heaviness in the right chest without radiation, dull in quality and lasted for a short time. She denies any worsening with exertion, SOB. The pt didn't have any episodes of N/V, abd pain, or diaphorsis. -pt receivies Zometa at the cancer center for hypercalcemia 2/2 CLL and had an infusion before coming to the hospital. She denies any constipation, weakness, change in mood Cardiology saw and said recommended medical management. Said most likely a type II NSTEMI -ECHO results: TTE resulted with LVEF preserved, no segmental wall motion abnormalities At this time the pt is stable for discharge. Follow up with PCP/hematology regarding CLL and hypercalcemia Currently the pt is resting comfortably. She has no complaints or conerns. She has no active chest pain, palpiltations, SOB, N/V/D. As per cardiology, hold toprol on discharge. Re-evaluate outpt to restart toprol. Discharge discussed with: patient, family Time spent discussing smoking cessation with patient: 3 to 10 minutes - Time Spent with Patient Total time spent providing and/or coordinating discharge services: Less than 30 minutes - Discharge Medications Prescriptions: Aspirin 81 mg PO DAILY 30 Days #30 tab.chew Atorvastatin [Lipitor] 10 mg PO HS 30 Days #30 tablet Home Medications: LORazepam [Ativan] 0.5 mg PO QAM 10/17/15 [History] Lisinopril [Zestril] 40 mg PO DAILY 10/17/15 [History] Torsemide 5 mg PO DAILY 09/03/17 [History] Cholecalciferol (D-3) [Vitamin D] 1,000 unit PO DAILY 12/03/17 [History] predniSONE [PredniSONE] 10 mg PO TAPER PRN 06/10/18 [History] Aspirin 81 mg PO DAILY 30 Days #30 tab.chew 06/12/18 [Rx] Atorvastatin [Lipitor] 10 mg PO HS 30 Days #30 tablet 06/12/18 [Rx] predniSONE [PredniSONE] 10 mg PO DAILY tablet 06/12/18 [Rx] predniSONE [PredniSONE] 20 mg PO DAILY tablet 06/12/18 [Rx] predniSONE [PredniSONE] 30 mg PO DAILY tablet 06/12/18 [Rx] Allergies/Adverse Reactions: 3 Allergy/AdvReac Type Severity Reaction Status Date / Time No Known Allergies Allergy Verified 06/10/18 20:42 Date of admission: 06/11/18 13:27 Primary care physician: Victor Hugo Figueroa Jr, MD Discharging clinician: Shar Cam Anticipated date of discharge: 06/12/18 - Constitutional Vitals: Temp Pulse Resp BP Pulse Ox 97.8 F 72 20 173/89 93 06/12/18 08:16 06/12/18 08:16 06/12/18 08:16 06/12/18 08:16 06/12/18 08:16 Exam: General: pleasant, without distress HEENT: Head atraumatic, normocephalic, EOMI, PERRL, absent ear discharge or trauma, Moist Mucous Membranes, uvula midline Neck: nontender to palpation, absent lymphadenopathy, Cardiovascualr: Regular rate and rhythm with no murmur, absent gallops or rubs, absent pedal edema, radial pulses 2 out of 4 Lungs: Clear to auscultation bilaterally, not in respiratory distress Abdomen: Soft nontender, nondistended positive bowel sounds, absent hepatomegaly Skin: warm and dry, absent rash, absent open wounds and nodules MSK: absent clubbing, cyanosis, joints without swelling. LLE in cast. Neuro: Cranial nerves II through XII intact, UE and LE sensation equal bilaterally, UE and LEstrength 5/5, alert oriented 3, Psych: good insight and judgment, anxious, depressed - Patient Status Disposition: Home, Self-Care Condition: Fair Functional capacity at discharge: uses cane/walker Overall status at discharge: patient is progressing back to baseline - Discharge Instructions Instructions: Atorvastatin (By mouth), Myocardial Infarction (DC) Follow Up With: Joselyn Holt MANAGER OF DEVELOPMENT [Advanced Practice Nurse] - 06/18/18 10:00 am - Diet and Activity Activity: increase activity as tolerated Diet: low fat, low cholesterol <GhanemWilliam Rheem - Last Filed: 06/12/18 15:03> Date of Encounter: 06/12/18 - Discharge Diagnosis (1) Hypercalcemia Status: Chronic (2) CLL (chronic lymphocytic leukemia) Status: Chronic (3) NSTEMI (non-ST elevated myocardial infarction) Status: Acute (4) Acute gout Status: Acute Qualifiers: Gout site: foot Gout etiology: other secondary cause Laterality: left Qualified Code(s): 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 Arana is a 82 year old female - Time Spent with Patient Total time spent providing and/or coordinating discharge services: Date of admission: 06/11/18 13:27 Primary care physician: Victor Hugo Figueroa Jr, MD - Constitutional Vitals: Temp Pulse Resp BP Pulse Ox 97.8 F 51 19 138/79 95 06/12/18 11:40 06/12/18 11:40 06/12/18 11:40 06/12/18 11:40 06/12/18 11:40 - Attending Attestation I examined this patient and my medical decision-making was reviewed with the Resident Physician. I agree with the documented findings, disposition and treatment plan as described except to the extent set forth below. Possible etiologies of tachycardia were gouty pain, shoulder and foot pain, prednisone, and hypercalcemia. Patient now bradycardic prior to discharge. Discussed with Cardiology and they suggest holding PO metoprolol and follow-up as outpatient to see if it should be resumed or not. Also noted by Cardiology to consider an outpatient stress test.
--- NOTE | 2018-06-12 10:48 | Event Note ---
Date of Encounter: 06/12/18 Time of Encounter: 10:46 - Cardiology Event Note TTE resulted with LVEF preserved, no segmental wall motion abnormalities. Per 's previous note, cardiology will sign off and will follow in outpatient setting. Follow up set. Consider outpatient stress test.
[2018-06-12 11:44] VITALS: BP 138/79
--- NOTE | 2018-06-13 08:23 | Electrocardiograph Report ---
[place] [id number] Test Date: 2018-06-10 Pat Name: Connor Arana Department: [id number] Room: 2NE21 Gender: F [employer]: : 1935 Requested By: Ramírez Lewis Order Number: [id number] Reading MD: Hood Murphy Measurements Intervals [place] Rate: 102 P: 69 DE: 188 QRS: -64 QRSD: 154 T: 107 QT: 383 QTc: 499 Interpretive Statements Sinus tachycardia Probable left atrial enlargement Left bundle branch block Left axis deviation Electronically Signed On 06-13-2018 8:21:23 EDT by Hood Murphy
--- NOTE | 2018-06-13 08:24 | Electrocardiograph Report ---
[place] [id number] Test Date: 2018-06-11 Pat Name: Connor Arana Department: 111 Room: 2N1 Gender: F [employer] Incident Response Specialist: NOREEN : 1935 Requested By: Román Miller Order Number: [id number] Reading MD: Hood Murphy Measurements Intervals [place] Rate: 89 P: 23 IA: 214 QRS: -69 QRSD: 163 T: 90 QT: 417 QTc: 463 Interpretive Statements SINUS RHYTHM WITH FIRST DEGREE AV BLOCK POSSIBLE LEFT ATRIAL ENLARGEMENT LEFT BUNDLE BRANCH BLOCK LEFT AXIS DEVIATION Electronically Signed On 06-13-2018 8:22:33 EDT by Hood Murphy
[2018-06-13] MEDS ORDERED: predniSONE 10 MG TABLET PO SCH (09:00)
[2018-06-16] MEDS ORDERED: predniSONE 5 MG TABLET PO SCH (09:00)
== END 2018-06-12 13:48 | disposition home or self-care (01) | DRG 281 ==
LOC: EMEROOARM 16:44 → 2NENU 16:44
PROVIDERS: ADMIT Internal Medicine; ATTEND Internal Medicine

== ENCOUNTER 2021-02-02 11:09 | Observation (INO) ==
[2021-02-02 11:53] LABS: Hematocrit 42.2 % (35.3-44.9); Hemoglobin 13.4 g/dL (11.5-15.4); Mean Corpuscular HGB Conc 31.8 g/dL (31.6-35.5); Mean Corpuscular Hemoglobin 29.4 pg (28.0-33.3); Mean Corpuscular Volume 92.5 fL (83.0-100.0); Mean Platelet Volume 9.9 fL (9.4-12.4); Platelet Count 220 K/mcL (140-400); Red Blood Count 4.56 M/mcL (3.82-4.97); Red Cell Distribution Width 13.6 % (11.5-14.5); White Blood Count 14.1 K/mcL (4.3-11.1)
[2021-02-02 12:14] LABS: BUN/Creatinine Ratio 17 (6-26); Blood Urea Nitrogen 14 mg/dL (8-23); Carbon Dioxide 26 mEq/L (23-29); Chloride 106 mEq/L (98-107); Glucose 94 mg/dL (70-105); Osmolality,Calculated 286 (280-300); Sodium 138 mEq/L (136-145); Troponin I < 0.03 ng/mL (< 0.04); eGFR For African Americans > 60 (> 60); eGFR For Non-African Americans > 60 (> 60)
[2021-02-02] MEDS ORDERED: Naloxone 0.4 MG/ML INJ IVP PRN (13:57)
[2021-02-02 13:59] LABS: Neutrophils # 5.4 K/mcL (1.6-8.9)
[2021-02-02 14:01] LABS: Eosinophils # 0.3 K/mcL (0.0-0.6); Lymphocytes # 8.5 K/mcL (0.6-4.6)
[2021-02-02 14:02] LABS: Platelet Estimate Normal (Normal)
[2021-02-02] MEDS ORDERED: *HR* Dextrose 50 % in Water (Vial) 50 ML VIAL IVP PRN (14:41)
[2021-02-02] MEDS ORDERED: D5% in Water 1,000 ML IVC PRN (14:41)
[2021-02-02] MEDS ORDERED: Dextrose Gel 15 GM/37.5 ML TUBE PO PRN ×2 (14:41)
[2021-02-02] MEDS: Insulin LISPRO 300 UNITS/3 ML VIAL SUBQ SCH (17:01)
[2021-02-02] MEDS: *HR* Heparin 5,000 UNIT/ML VIAL SQ SCH (17:01)
[2021-02-02] MEDS ORDERED: Artificial Tears SOLN 15 ML BOTTLE BOTH EYES SCH (22:15)
[2021-02-03 00:47] LABS: Basophils % 0.3 %; Eosinophils # 0.4 K/mcL (0.0-0.6); Eosinophils % 3.3 %; Hematocrit 39.4 % (35.3-44.9); Hemoglobin 12.8 g/dL (11.5-15.4); Immature Granulocytes % 0.2 % (0-4); Lymphocytes # 8.3 K/mcL (0.6-4.6); Lymphocytes % 63.6 %; Mean Corpuscular HGB Conc 32.5 g/dL (31.6-35.5); Mean Corpuscular Hemoglobin 29.8 pg (28.0-33.3); Mean Corpuscular Volume 91.8 fL (83.0-100.0); Mean Platelet Volume 10.4 fL (9.4-12.4); Monocytes # 0.9 K/mcL (0.0-1.3); Monocytes % 6.8 %; Neutrophils # 3.4 K/mcL (1.6-8.9); Platelet Count 211 K/mcL (140-400); Red Blood Count 4.29 M/mcL (3.82-4.97); Red Cell Distribution Width 13.8 % (11.5-14.5); Segmented Neutrophils % 25.8 %
[2021-02-03 01:08] LABS: BUN/Creatinine Ratio 20 (6-26); Blood Urea Nitrogen 16 mg/dL (8-23); Calcium 10.9 mg/dL (8.6-10.3); Carbon Dioxide 25 mEq/L (23-29); Chloride 107 mEq/L (98-107); Glucose 97 mg/dL (70-105); Osmolality,Calculated 287 (280-300); Potassium 4.3 mEq/L (3.5-5.1); Sodium 138 mEq/L (136-145); eGFR For African Americans > 60 (> 60); eGFR For Non-African Americans > 60 (> 60)
[2021-02-03 01:25] LABS: Platelet Estimate Normal (Normal); Reactive Lymphocytes Present (Not Present); Smudge Cells Present (Not Present)
[2021-02-03] MEDS: *HR* Heparin 5,000 UNIT/ML VIAL SQ SCH (05:27)
[2021-02-03 08:00] VITALS: BP 150/74
[2021-02-03] MEDS: Insulin LISPRO 300 UNITS/3 ML VIAL SUBQ SCH (08:04)
[2021-02-03] MEDS ORDERED: lisinopriL 20 MG TABLET PO SCH (09:00)
[2021-02-03] MEDS ORDERED: Aspirin Enteric Coated 81 MG Tablet PO SCH (09:00)
[2021-02-03] MEDS ORDERED: Torsemide 20 MG TABLET PO SCH (09:00)
== END 2021-02-03 11:53 | disposition home or self-care (01) ==
LOC: EMEROOARM 11:09 → 2ANU 13:08 → SUATTDRO 13:08 → INTOOBSV 13:08 → 2ANU 13:14
PROVIDERS: ADMIT Student in an Organized Health Care Education/Training Program; ATTEND Family Medicine